=== PATIENT | female | born 1950 | race Caucasian/White ===

== ENCOUNTER 2016-09-23 12:27 | Emergency (ER) | payer OTHER, MEDICARE ==
[~2016-09-23] VITALS: Ht 157.5 cm; Wt 59.0 kg
[2016-09-23] MEDS ORDERED: BISACODYL10 M1 RC (12:48)
[2016-09-23] MEDS ORDERED: CALCI-CHEW500 MG PO (12:48)
[2016-09-23] MEDS ORDERED: MAGNESIUM400 M1 PO (12:49)
[2016-09-23] MEDS ORDERED: HUMALOG100 UNIT/2 SC (12:49)
[2016-09-23] MEDS ORDERED: CUBICIN RF500 MG IV (12:52)
[2016-09-23] MEDS ORDERED: LIPITOR80 M1 PO (12:53)
[2016-09-23] MEDS ORDERED: LOPRESSOR50 M1 PO (12:54)
[2016-09-23] MEDS ORDERED: HYSEPT473 ML TOP (12:54)
[2016-09-23] MEDS ORDERED: HEPARIN SO5000 UNIT3 SC (12:54)
--- NOTE | 2016-09-23 12:55 | ED CARDIAC/CP/PALPITATIONS ---
History of Present Illness General Chief Complaint: Chest Pain Stated Complaint: CHEST PAIN Source: patient, EMS Exam Limitations: no limitations Vital Signs & Intake/Output Vital Signs & Intake/Output Vital Signs Date Time Temp Pulse Resp B/P Pulse O2 O2 Flow FiO2 Ox Delivery Rate 09/23 1657 97.0 106 18 152/68 98 Room Air 09/23 1444 97.8 93 18 144/72 98 Room Air 09/23 1427 99 Room Air 09/23 1240 98.4 100 20 142/70 99 Room Air Allergies Coded Allergies: ceftriaxone (RASH 09/23/16) chocolate flavor (UNKNOWN 09/23/16) divalproex sodium (UNKNOWN 09/12/15) egg (VOMITING 09/23/16) metronidazole (RASH 09/23/16) phenytoin (UNKNOWN 09/12/15) Reconcile Medications Acetaminophen 325 MG TABLET 2 TAB PO Q4H PRN PAIN/TEMP>100 (Reported) Albuterol Sulfate 2.5 MG/3 ML (0.083 %) VIAL.NEB 1 Vial INH/EHSAN Q4P PRN WHEEZING (Reported) Amlodipine Besylate 10 MG TABLET 1 TAB PO DAILY HEART/BP (Reported) Ampicillin Sodium 2 GRAM VIAL 2 G IV Q6H ANTIBIOTIC (Reported) Atorvastatin Calcium (Lipitor) 80 MG TABLET 1 TAB PO DAILY CHOLESTEROL ( Reported) Bisacodyl 10 MG SUPP.RECT 1 SUP RC DAILY PRN CONSTIPATION (Reported) Calcium Carbonate (Calci-Chew) 500 MG CALCIUM (1,250 MG) TAB.CHEW 2 TAB PO TID PRN GI (Reported) Daptomycin (Cubicin Rf) 500 MG VIAL 300 MG IV DAILY ANTIBIOTIC (Reported) Ergocalciferol (Vitamin D2) (Vitamin D2) 50,000 UNIT CAPSULE 1 CAP PO Q30D SUPPLEMENT (Reported) Heparin Sodium,Porcine (Heparin Sodium) 5,000 UNIT/ML VIAL 1 ML SC Q8H BLOOD THINNER (Reported) Insulin Lispro (Humalog) 100 UNIT/ML VIAL DM (Reported) Magnesium Oxide (Magnesium) 400 MG CAPSULE 1 CAP PO DAILY SUPPLEMENT ( Reported) Melatonin (Melatin) 3 MG TABLET 6 MG PO QHS PRN INSOMNIA (Reported) Metoprolol Tartrate (Lopressor) 50 MG TABLET 1 TAB PO Q8H HEART/BP (Reported) Multivitamin (Multi-Day Vitamins) 1 EACH TABLET 1 TAB PO DAILY SUPPLEMENT ( Reported) Nystatin (Nyamyc) 100,000 UNIT/GRAM POWDER 1 ELIDA TOP BID SKIN - UNKNOWN SITE (Reported) Pantoprazole Sodium 40 MG TABLET. 1 TAB PO DAILY GI (Reported) Saccharomyces Boulardii (Florastor) 250 MG CAPSULE 1 CAP PO BID PROBIOTIC ( Reported) Sodium Hypochlorite (Hysept) 0.25 % SOLUTION 1 ELIDA TOP BID COCCYX (Reported) Zinc Oxide (Boudreauxs) 40 % OINT...G. 1 ELIDA TOP BID OUTTER PERIWOUND AREA ( Reported) Triage Nurses Notes Reviewed? yes HPI: This patient is a 58-year-old female with a past medical history including dementia who presented to the emergency department today brought in by EMS for evaluation of chest pain. This patient was discharged today from inpatient to return to [facility]. As EMS was getting her off the stretcher at [facility], the patient's otic complaining of left-sided chest pain. She reported that it felt like a burning sensation. The patient reported that it also seems to be in the top of her abdomen. The patient denied any radiation of the pain. She was unable to quantify the pain on a pain scale. She denied any arm pain, jaw pain, numbness or tingling in her extremities, headache, visual changes, or any other associated symptoms. No nausea, vomiting, abdominal pain, or difficulty breathing. (JANELLE SYKES PA-C) Past History Travel History Traveled to [place] past 21 day No Medical History Any Pertinent Medical History? see below for history Surgical History Surgical History: non-contributory Family History Hx Contributory? No (JANELLE SYKES PA-C) Review of Systems Review of Systems Constitutional: Reports: no symptoms. EENTM: Reports: no symptoms. Respiratory: Reports: no symptoms. Cardiovascular: Reports: see HPI. GI: Reports: no symptoms. Genitourinary: Reports: no symptoms. Musculoskeletal: Reports: no symptoms. Skin: Reports: no symptoms. Neurological/Psychological: Reports: no symptoms. All Other Systems: Reviewed and Negative (JANELLE SYKES PA-C) Physical Exam Physical Exam Cardiovascular: regular rate/rhythm, normal peripheral pulses, NO MURMURS, RUBS OR GALLOPS Comments: Well-developed well-nourished person in no acute distress HEENT: Normal EENT exam, head normocephalic, moist mucous membranes Pupils equally round and reactive to light. Neck: Supple, no lymphadenopathy Back: Normal inspection Respiratory: Chest nontender. No respiratory distress. Breath sounds clear to auscultation bilaterally Abdomen: Soft, nontender and nondistended Extremity: Normal and equal pulses. Neuro: Alert oriented x3, cranial nerves II through XII grossly intact. Skin: No appreciable rash on exposed skin, skin is warm and dry. Psych: Mood and affect is normal Core Measures ACS in differential dx? Yes Severe Sepsis Present: No Septic Shock Present: No (ONEL RICE,JANELLE) Progress Differential Diagnosis: AMI, aortic dissection, atrial fibrillation, cholecystitis, CHF/pulm edema, costochondritis, hyperkalemia, hyperthyroid, hyperventilation, musculoskeletal pain, myocarditis, pancreatitis, pericarditis, pneumonia, pneumothorax, pulmonary embolism, PUD/GERD, unstable angina Plan of Care: Orders Procedure Date/time Status TROPONIN LEVEL 09/23 1805 Complete EKG 09/23 1805 Active TROPONIN LEVEL 09/23 1310 Complete MAGNESIUM 09/23 1310 Complete LACTIC ACID 09/23 1310 Complete D-DIMER 09/23 1310 Complete COMPREHENSIVE METABOLIC PANEL 09/23 1310 Complete CBC WITHOUT DIFFERENTIAL 09/23 1310 Complete B-TYPE NATRIURETIC PEP (BNP) 09/23 1310 Complete EKG 09/23 1230 Active Current Medications Sig/Hayden Start time Last Medication Dose Stop Time Status Admin Aspirin 325 MG ONCE ONE 09/23 1315 CAN (Aspirin) 09/23 1316 Laboratory Tests 09/23/16 1812: Troponin I < 0.01 09/23/16 1610: Lactic Acid Cancelled 09/23/16 1408: Anion Gap 13, Estimated GFR 37 L, BUN/Creatinine Ratio 40.0 H, Glucose 153 H, Lactic Acid 1.1, Calcium 10.0, Magnesium 2.3, Total Bilirubin 0.4, AST 28, ALT 37, Alkaline Phosphatase 136 H, Troponin I < 0.01, Dtt-G-Msjdylrwgjv Pept 4120 H, Total Protein 7.3, Albumin 3.6, Globulin 3.7, Albumin/Globulin Ratio 1.0 L, D-Dimer 738 H, CBC w Diff NO MAN DIFF REQ, RBC 3.11 L, MCV 92.2, MCH 31.2 H, RDW 17.0 H, MPV 7.5, Gran % 76.0 H, Lymphocytes % 9.1 L, Monocytes % 6.7, Eosinophils % 7.6 H, Basophils % 0.6, Absolute Granulocytes 9.5 H, Absolute Lymphocytes 1.1 L, Absolute Monocytes 0.8 H, Absolute Eosinophils 0.9, Absolute Basophils 0.1, PUBS MCHC 33.9 Diagnostic Imaging: Viewed by Me: Radiology Read, CT Scan. Discussed w/RAD: Radiology Read, CT Scan. Radiology Impression: PATIENT: KAILA CROWELL PRESENT AGE: 66 PATIENT ACCOUNT NO: [id number] : 48 LOCATION: [facility] ORDERING PHYSICIAN: JANELLE SYKES PA-C SERVICE DATE: 09/23/16 EXAM TYPE: RAD - XRY-CHEST XRAY, PA AND LATERAL EXAMINATION: XR CHEST CLINICAL INFORMATION: Chest pain. Evaluate for pneumonia. COMPARISON: None TECHNIQUE: 2 views of the chest were obtained. FINDINGS: The lateral radiograph is suboptimal. The ultrasound technologist reports that patient was unable to sit upright for the lateral view. A left arm peripherally inserted catheter is in satisfactory position, its tip located at the junction of the superior vena cava and right atrium. Intact ventriculoperitoneal tubing projects over the left chest. Lungs are hypoinflated. Discoid atelectasis is present within the middle lobe. No acute pulmonary edema, focal consolidation or pleural effusion. Cardiac silhouette is mildly enlarged. The hilar contours are normal. No acute skeletal findings. IMPRESSION: 1. No evidence of pneumonia. 2. Discoid atelectasis is present within the right lung base. DICTATED BY: QUEENIE WHITE MD DATE/TIME DICTATED: 09/23/161409 ENVIRONMENTAL ECONOMIST:MILAD DATE/TIME TRANSCRIBED:09/23/161409 CONFIDENTIAL, DO NOT COPY WITHOUT APPROPRIATE AUTHORIZATION. <Electronically signed in Other Vendor System> SIGNED BY: QUEENIE WHITE MD 09/23/16 1416, PATIENT: KAILA CROWELL PRESENT AGE: 66 PATIENT ACCOUNT NO: [id number] : 48 LOCATION: [facility] ORDERING PHYSICIAN: JANELLE SYKES PA-C SERVICE DATE: 09/23/161452 EXAM TYPE: CAT - CTA CHEST- PULMONARY EMBOLISM EXAMINATION: CT ANGIOGRAM OF THE CHEST WITH CONTRAST (CT PULMONARY ANGIOGRAM FOR PE) CLINICAL INFORMATION: Chest pain and elevated d- dimer. COMPARISON: CXR from 09/23/2016 TECHNIQUE: Prior to contrast administration, noncontrast localization images were obtained. Subsequently, multidetector volumetric imaging was performed from the thoracic inlet to below the diaphragms following the administration of 95 mL of Optiray 320 intravenous contrast. No contrast reaction reported. Sagittal, coronal, and MIP oblique sagittal reformatted images were obtained on the CT workstation, uploaded to PACS, and reviewed. Total exam dose-length product 422 mGy-cm FINDINGS: QUALITY OF STUDY/CONTRAST BOLUS: Satisfactory. PULMONARY ARTERIES: There are no embolic filling defects identified within the main, lobar or segmental vessels. THORACIC AORTA: There is extensive atherosclerotic plaque of the aortic arch and descending aorta. The irregular plaque along the wall of the descending aorta appears ulcerated. However, there is no evidence of a penetrating atherosclerotic ulcer, dissection or aneurysm. There is atherosclerotic disease of the innominate and subclavian arteries without significant luminal stenosis. LUNGS AND PLEURA: Trachea and mainstem bronchi are widely patent and normal in caliber. Bronchial martinez are thickened in both lungs, particularly within the lower lobes. Moderate centrilobular emphysema has an upper lobe predominance. There is subsegmental atelectasis of the middle lobe. Areas of platelike atelectasis are present within the right lower lobe. A curvilinear opacity in the medial basal segment of the left lower lobe appears to represent atelectasis. This opacity, which measures 1.3 cm transverse, has slightly rounded contour on some of the axial images, raising question of underlying lung nodule. However, there is no convincing nodule, and the opacity has a more linear, bandlike appearance on the coronal reformatted images. A small, 0.2 cm calcified granuloma is seen at the right lung apex (image 69, series 5). A small , 0.3 cm nodule is present in the apicoposterior segment of the left upper lobe (image 91, series 5) and a 0.3 cm subpleural nodule is present in the lateral basal segment of the left lower lobe (image 267, series 5). No suspicious lung nodule. There is a trace right pleural effusion. No pneumothorax. MEDIASTINUM: There is cardiomegaly with mild enlargement of the left atrial and ventricular chambers. There is three-vessel coronary artery atherosclerotic calcification. No pericardial effusion. No evidence of septal bowing or right heart strain. The esophagus is unremarkable. The visualized portion of the thyroid gland is normal. LYMPHATICS: No axillary lymphadenopathy. Multiple lymph nodes of < 1 cm short axis dimension are present within the mediastinum. A right hilar lymph node is 1 cm short axis dimension. There is no bulky hilar adenopathy. UPPER ABDOMEN: Unremarkable. There is no reflux of contrast into the hepatic veins to suggest elevated right heart pressures. OSSEOUS STRUCTURES: No acute findings within the mildly degenerated thoracic spine. No aggressive osseous lesions. Bone island is present within the left humeral head. IMPRESSION: 1. No evidence of pulmonary embolism. 2. Moderate pulmonary emphysema. 3. Bronchial wall thickening in both lungs, particularly low in the lower lobes, requires clinical correlation. Bronchial wall thickening could be secondary to chronic cigarette smoking, asthma and/or bronchitis. Scattered areas of atelectasis are present within both lungs, predominantly involving the medial segment of middle lobe and both lower lobes. 4. Cardiomegaly and atherosclerotic disease of coronary arteries. Also, there is atherosclerotic disease of the thoracic aorta. Moderate , irregular, ulcerated appearing plaque is seen along the inner wall of the descending thoracic aorta. No evidence of thoracic aorta aneurysm or dissection. 5. Small calcified and noncalcified pulmonary nodules, as noted above. The 1.3 cm wide opacity in the medial basal segment of the left lower lobe has slightly rounded contour on axial images, but there is no convincing nodule in this location. Given uncertainty, recommend noncontrast chest CT follow-up in 3 months to assess for improvement or clearing of this likely lower lobe atelectasis. DICTATED BY: QUEENIE WHITE MD DATE/TIME DICTATED:09/23/161552 ENVIRONMENTAL ECONOMIST:MILAD DATE/TIME TRANSCRIBED:09/23/161552 CONFIDENTIAL, DO NOT COPY WITHOUT APPROPRIATE AUTHORIZATION. <Electronically signed in Other Vendor System> SIGNED BY: QUEENIE WHITE MD 09/23/16 9047 Initial ED EKG: normal axis, normal intervals, normal p-waves, normal QRS complex, normal sinus rhythm, 100 BPM Repeat EKG: unchanged (94 BPM) Comments: 09/23/2016 2:43:14 PM: Son, her power of attorney recruiter called to speak with us regarding this patient. He reported that this patient recently had a shunt removed from her brain approximately 4 weeks ago. He reported that they tried rerouting him multiple times but it became infected multiple times. He is okay with this patient receiving a CT scan of the chest to evaluate for any pulmonary emboli. 09/23/2016 4:40:29 PM: I spoke to this patient's son to give him an update. He called the hospital. This patient will be staying for a second troponin and second EKG at 6:08. The patient's son would like a call before the patient is discharged as he would like to welcome his mother back to [place]. [facility]- [phone] (JANELLE SYKES PA-C) Departure Departure Disposition: HOME OR SELF CARE Condition: Stable Clinical Impression Primary Impression: Chest pain Qualifiers: Chest pain type: unspecified Qualified Code: R07.9 - Chest pain, unspecified Referrals: HAROON SPAIN,MAYI Brady (PCP/Family) Departure Forms: Customer Survey General Discharge Information (JANELLE SYKES PA-C) PA/WELCOME HOSTESS Co-Sign Statement Statement: ED Attending supervision documentation- x I saw and evaluated the patient. I have also reviewed all the pertinent lab results and diagnostic results. I agree with the findings and the plan of care as documented in the PA's/WELCOME HOSTESS's documentation. [] I have reviewed the ED Record and agree with the PA's/WELCOME HOSTESS's documentation. [] Additions or exceptions (if any) to the PAs/WELCOME HOSTESS's note and plan are summarized below: [] ([place] SPAIN,SHANTI) Critical Care Note Critical Care Note Critical Care Time: non-applicable (JANELLE SYKES PA-C)
[2016-09-23] MEDS ORDERED: BOUDREAUXS57 GM TOP (12:56)
[2016-09-23] MEDS ORDERED: ACETAMINOPHEN325 M2 PO (12:56)
[2016-09-23] MEDS ORDERED: ALBUTEROL2.5 MG/3 M INH/SOL (12:57)
[2016-09-23] MEDS ORDERED: AMLODIPINE BESY10 M1 PO (12:58)
[2016-09-23] MEDS ORDERED: VITAMIN D250000 UNIT PO (12:58)
[2016-09-23] MEDS ORDERED: FLORASTOR250 M1 PO (13:00)
[2016-09-23] MEDS ORDERED: MELATIN3 MG PO (13:03)
[2016-09-23] MEDS ORDERED: MULTI-DAY VITA1 EACH PO (13:03)
[2016-09-23] MEDS ORDERED: NYAMYC15 GM TOP (13:04)
[2016-09-23] MEDS ORDERED: PANTOPRAZOLE SO40 M1 PO (13:04)
[2016-09-23] MEDS ORDERED: AMPICILLIN SODIU2 G2 IV (13:06)
--- NOTE | 2016-09-23 14:16 | RADIOLOGY REPORT ---
EXAMINATION: XR CHEST CLINICAL INFORMATION: Chest pain. Evaluate for pneumonia. COMPARISON: None TECHNIQUE: 2 views of the chest were obtained. FINDINGS: The lateral radiograph is suboptimal. The generation technologist reports that patient was unable to sit upright for the lateral view. A left arm peripherally inserted catheter is in satisfactory position, its tip located at the junction of the superior vena cava and right atrium. Intact ventriculoperitoneal tubing projects over the left chest. Lungs are hypoinflated. Discoid atelectasis is present within the middle lobe. No acute pulmonary edema, focal consolidation or pleural effusion. Cardiac silhouette is mildly enlarged. The hilar contours are normal. No acute skeletal findings. IMPRESSION: 1. No evidence of pneumonia. 2. Discoid atelectasis is present within the right lung base.
[2016-09-23 14:18] LABS: ABSOLUTE BASOPHIL COUNT 0.1 /CUMM (0.0-0.2); ABSOLUTE EOSINOPHIL COUNT 0.9 /CUMM (0.0-0.7); ABSOLUTE GRANULOCYTE CT 9.5 /CUMM (1.4-6.5); ABSOLUTE LYMPH COUNT 1.1 /CUMM (1.2-3.4); ABSOLUTE MONOCYTE COUNT 0.8 /CUMM (0.10-0.60); BASOPHIL % 0.6 % (0.0-2.0); EOSINOPHIL % 7.6 % (0-5); HEMATOCRIT 28.7 % (37-47); MEAN CORPUSCULAR HGB 31.2 PG (27.0-31.0); MEAN CORPUSCULAR HGB CONC 33.9 G/DL (33.0-37.0); MEAN CORPUSCULAR VOLUME 92.2 FL (81.0-99.0); MEAN PLATELET VOLUME 7.5 FL (7.4-10.4); PLATELET COUNT 471 /CUMM (130-400); RED BLOOD CELL CT 3.11 /CUMM (4.20-5.40); WHITE BLOOD CELL COUNT 12.5 /CUMM (4.8-10.8)
--- NOTE | 2016-09-23 16:19 | CT SCAN REPORT ---
EXAMINATION: CT ANGIOGRAM OF THE CHEST WITH CONTRAST (CT PULMONARY ANGIOGRAM FOR PE) CLINICAL INFORMATION: Chest pain and elevated d-dimer. COMPARISON: CXR from 09/23/2016 TECHNIQUE: Prior to contrast administration, noncontrast localization images were obtained. Subsequently, multidetector volumetric imaging was performed from the thoracic inlet to below the diaphragms following the administration of 95 mL of Optiray 320 intravenous contrast. No contrast reaction reported. Sagittal, coronal, and MIP oblique sagittal reformatted images were obtained on the CT workstation, uploaded to PACS, and reviewed. Total exam dose-length product 422 mGy-cm FINDINGS: QUALITY OF STUDY/CONTRAST BOLUS: Satisfactory. PULMONARY ARTERIES: There are no embolic filling defects identified within the main, lobar or segmental vessels. THORACIC AORTA: There is extensive atherosclerotic plaque of the aortic arch and descending aorta. The irregular plaque along the wall of the descending aorta appears ulcerated. However, there is no evidence of a penetrating atherosclerotic ulcer, dissection or aneurysm. There is atherosclerotic disease of the innominate and subclavian arteries without significant luminal stenosis. LUNGS AND PLEURA: Trachea and mainstem bronchi are widely patent and normal in caliber. Bronchial martinez are thickened in both lungs, particularly within the lower lobes. Moderate centrilobular emphysema has an upper lobe predominance. There is subsegmental atelectasis of the middle lobe. Areas of platelike atelectasis are present within the right lower lobe. A curvilinear opacity in the medial basal segment of the left lower lobe appears to represent atelectasis. This opacity, which measures 1.3 cm transverse, has slightly rounded contour on some of the axial images, raising question of underlying lung nodule. However, there is no convincing nodule, and the opacity has a more linear, bandlike appearance on the coronal reformatted images. A small, 0.2 cm calcified granuloma is seen at the right lung apex (image 69, series 5). A small, 0.3 cm nodule is present in the apicoposterior segment of the left upper lobe (image 91, series 5) and a 0.3 cm subpleural nodule is present in the lateral basal segment of the left lower lobe (image 267, series 5). No suspicious lung nodule. There is a trace right pleural effusion. No pneumothorax. MEDIASTINUM: There is cardiomegaly with mild enlargement of the left atrial and ventricular chambers. There is three-vessel coronary artery atherosclerotic calcification. No pericardial effusion. No evidence of septal bowing or right heart strain. The esophagus is unremarkable. The visualized portion of the thyroid gland is normal. LYMPHATICS: No axillary lymphadenopathy. Multiple lymph nodes of < 1 cm short axis dimension are present within the mediastinum. A right hilar lymph node is 1 cm short axis dimension. There is no bulky hilar adenopathy. UPPER ABDOMEN: Unremarkable. There is no reflux of contrast into the hepatic veins to suggest elevated right heart pressures. OSSEOUS STRUCTURES: No acute findings within the mildly degenerated thoracic spine. No aggressive osseous lesions. Bone island is present within the left humeral head. IMPRESSION: 1. No evidence of pulmonary embolism. 2. Moderate pulmonary emphysema. 3. Bronchial wall thickening in both lungs, particularly low in the lower lobes, requires clinical correlation. Bronchial wall thickening could be secondary to chronic cigarette smoking, asthma and/or bronchitis. Scattered areas of atelectasis are present within both lungs, predominantly involving the medial segment of middle lobe and both lower lobes. 4. Cardiomegaly and atherosclerotic disease of coronary arteries. Also, there is atherosclerotic disease of the thoracic aorta. Moderate, irregular, ulcerated appearing plaque is seen along the inner wall of the descending thoracic aorta. No evidence of thoracic aorta aneurysm or dissection. 5. Small calcified and noncalcified pulmonary nodules, as noted above. The 1.3 cm wide opacity in the medial basal segment of the left lower lobe has slightly rounded contour on axial images, but there is no convincing nodule in this location. Given uncertainty, recommend noncontrast chest CT follow-up in 3 months to assess for improvement or clearing of this likely lower lobe atelectasis.
[2016-09-23 19:54] VITALS: BP 154/82
== END 2016-09-23 20:06 ==
LOC: ERH 12:27
PROVIDERS: Physician Assistant
DX: R07.9 Chest pain, unspecified (principal)
CPT/HCPCS: 93005; 93010; J0131